=== PATIENT | male | born 1975 | race Caucasian/White ===

== ENCOUNTER 2017-09-14 17:23 | Emergency (ER) | payer OTHER ==
[~2017-09-14] VITALS: Ht 175.2 cm; Wt 95.3 kg
[2017-09-14] MEDS ORDERED: FISH OIL + D31 EACH PO (17:25)
[2017-09-14 17:52] LABS: HEMATOCRIT 43.5 % (42.0-52.0); HEMOGLOBIN 14.6 g/dl (14.0-18.0); MEAN CELL VOLUME 89.1 fl (80.0-94.0); MEAN CORPUSCULAR HGB 29.9 pg (27.0-31.0); MEAN CORPUSCULAR HGB CONC 33.6 g/dl (33.0-37.0); MEAN PLATELET VOLUME 8.7 fl (9.6-12.3); PLATELET COUNT AUTOMATED 176 10*3/uL (130-400); RED BLOOD COUNT 4.88 10*6/uL (4.50-5.90); RED CELL DISTRI WIDTH 13.3 % (0-14.5); WHITE BLOOD COUNT 18.9 10*3/uL (4.8-10.8)
[2017-09-14 18:04] LABS: CREATININE 1.62 mg/dL (0.70-1.30); POTASSIUM 3.9 mmol/L (3.5-5.1)
[2017-09-14 18:18] LABS: TOTAL CELLS COUNTED 100 #CELLS
[2017-09-14 18:19] LABS: PLATELET SUFFICIENCY NORMAL (NORMAL)
[2017-09-14] MEDS ORDERED: AMOXICILLIN500 M2 PO (18:52)
== END 2017-09-14 18:56 | disposition home or self-care (01) ==
LOC: ED 17:23
PROVIDERS: Emergency Medicine
DX: J03.00 Acute streptococcal tonsillitis, unspecified (principal); Z79.899 Other long term (current) drug therapy; Z88.0 Allergy status to penicillin

== ENCOUNTER 2023-07-28 11:46 | Emergency (ER) | payer OTHER ==
[~2023-07-28] VITALS: Ht 175.2 cm; Wt 108.9 kg
[~2023-07-28 11:46] MED LIST: AMOXICILLIN500 M2 PO; FISH OIL + D31 EACH PO
[2023-07-28] MEDS ORDERED: CEPHALEXIN500 M1 PO (12:24)
== END 2023-07-28 12:39 | disposition home or self-care (01) ==
LOC: ED 11:46
DX: J35.8 Other chronic diseases of tonsils and adenoids (principal); Z88.0 Allergy status to penicillin